=== PATIENT | female | born 1970 | race Caucasian/White ===

== ENCOUNTER 2022-12-03 07:37 | Day surgery (SDC) | payer BC ==
[~2022-12-03] VITALS: Ht 167.6 cm; Wt 106.6 kg
[~2022-12-03 07:37] MED LIST: B-12500 MC1 PO; CIPROFLOXACN500 MG PO; CYMBALTA30 MG PO; FOLIC ACID1 MG PO; LISINOPRIL/HYDR1 TA1 PO; MECLIZINE12.5 M1 PO; MELOXICAM15 MG PO; MULTIVITAMI1 PO; SYNTHROID100 MCG PO; TYLENOL325 MG PO; VITAMIN D2 PO
[2022-12-03 09:12] VITALS: BP 115/63
== END 2022-12-03 09:30 | disposition home or self-care (01) | DRG 951 ==
LOC: ORM 07:37 → ENDO 10:55
PROVIDERS: ATTEND Surgery
PROC: 0DJD8ZZ Inspection of Lower Intestinal Tract, Via Natural or Artificial Opening Endoscopic (ICD-10-PCS; principal; 2022-12-03)
DX: Z12.11 Encounter for screening for malignant neoplasm of colon (principal); K57.30 Diverticulosis of large intestine without perforation or abscess without bleeding; K64.8 Other hemorrhoids; I10 Essential (primary) hypertension; E03.9 Hypothyroidism, unspecified

== ENCOUNTER 2023-10-14 09:02 | Emergency (ER) | payer BC ==
[2023-10-14] VITALS (9 sets, daily range): BP systolic 102–119; BP diastolic 53–74
[~2023-10-14] VITALS: Ht 167.6 cm; Wt 108.0 kg
[2023-10-14 09:39] LABS: BASO% 0.2 % (0-3); EOS% 1.4 % (0-8); HEMATOCRIT 41.3 % (37.0-47.0); HEMOGLOBIN 13.7 g/dl (12.0-16.0); IMMATURE GRANULOCYTES 0.2 % (0.0-5.0); LYMPH% 15.2 % (15-41); MEAN CELL VOLUME 87.1 fL CALC (80.0-100.0); MEAN CORPUSCULAR HGB 28.9 pG CALC (26.0-32.0); MEAN CORPUSCULAR HGB CONC 33.2 g/dL CAL (32.0-36.0); MONO% 7.3 % (2-13); NEUT# 10.09 thou/uL (2.00-7.15); NEUT% 75.7 % (42-76); RED BLOOD COUNT 4.74 mill/uL (4.20-5.60); RED CELL DISTRI WIDTH 12.7 % (11.5-15.5)
[2023-10-14 09:45] LABS: URINE BILIRUBIN - DIPSTICK Negative (NEGATIVE); URINE BLOOD DIPSTICK Trace-intact (NEGATIVE); URINE GLUCOSE - DIPSTICK Negative (NEGATIVE); URINE KETONE Negative (NEGATIVE); URINE LEUK ESTERASE Negative (NEGATIVE); URINE NITRITE - DIPSTICK Negative (Negative); URINE PROTEIN - DIPSTICK Negative (NEG-TRACE); URINE UROBILINOGEN - DIPSTICK 0.2 E.U./dL (0.2)
[2023-10-14 09:53] LABS: URINE COLOR Yellow
[2023-10-14 10:01] LABS: ALBUMIN 4.5 g/dL (3.2-5.0); CREATININE 0.8 mg/dL (0.5-1.0); POTASSIUM 3.8 mmol/l (3.5-5.1); TOTAL PROTEIN 7.6 g/dL (6.3-8.2)
[2023-10-14 10:02] LABS: BILIRUBIN, TOTAL 0.9 mg/dL (0.02-1.3)
[2023-10-14] MEDS ORDERED: METRONIDAZOLE500 MG PO (11:28)
[2023-10-14] MEDS ORDERED: CIPROFLOXACN500 MG PO (11:28)
[2023-10-14] MEDS ORDERED: ZOFRAN4 MG/TAB PO (11:28)
== END 2023-10-14 11:40 | disposition home or self-care (01) | DRG 392 ==
LOC: ED 09:02
PROVIDERS: Family Medicine
DX: K57.32 Diverticulitis of large intestine without perforation or abscess without bleeding (principal); I10 Essential (primary) hypertension; E66.9 Obesity, unspecified; E03.9 Hypothyroidism, unspecified
CPT/HCPCS: Q9967